=== PATIENT | female | born 1965 | race Caucasian/White ===

== ENCOUNTER → 2016-11-09 | Outpatient (CLI) | payer BC ==
[~2016-11-09] MED LIST: ACET-1256 PO; GLC/500 PO; SYMIN160 INH; VNTHFA/IN INH
--- NOTE | 2016-11-09 12:11 | DIAGNOSTIC IMAGING REPORT ---
CHEST 2 VIEWS ROUTINE HISTORY: J20.9 Acute bronchitis with bronchospasm COMPARISON: Chest 08/02/2014. FINDINGS: The lungs are clear. Cardiac silhouette is normal in size. No pleural effusions. No pneumothorax. Right-sided supraspinatus calcific tendinitis. IMPRESSION: No acute process. Electronically signed by: Lazaro Vale M.D. 11/09/2016 12:10 PM Dictated Date/Time: 11/09/2016 12:07 PM
== END | disposition home or self-care (01) ==
LOC: C.RAD1850 11:24
PROVIDERS: ATTEND Physician Assistant
DX: J20.9 Acute bronchitis, unspecified (principal)

== ENCOUNTER → 2016-11-20 | Outpatient (CLI) | payer BC ==
[~2016-11-20] MED LIST changes: +OPTIRAY 320 IV PRN
[2016-11-20 12:56] LABS: BLOOD UREA NITROGEN 9 mg/dl (7-18); BUN/CREATININE RATIO 15.4 (10-20); CREATININE 0.59 mg/dl (0.60-1.20)
[2016-11-20 13:11] LABS: BASO % 0.1 %; BASO ABS # 0.01 K/uL (0-0.2); COMPLETE YES; EOS % 2.3 %; HEMATOCRIT 38.9 % (37-47); IG% 0.8 %; LYMPH ABS # 3.49 K/uL (1.2-3.4); MEAN CELL VOLUME 85.9 fL (80-100); MEAN CORPUSCULAR HEMOGLOBIN 30.5 pg (25-34); MEAN CORPUSCULAR HGB CONC 35.5 g/dl (32-36); MEAN PLATELET VOLUME 10.5 fL (7.4-10.4); NEUT % 44.8 %; PLATELET COUNT 176 K/uL (130-400); RED BLOOD COUNT 4.53 M/uL (4.2-5.4); WHITE BLOOD COUNT 7.76 K/uL (4.8-10.8)
[2016-11-20 13:44] LABS: ALT/SGPT 75 U/L (12-78); BLOOD UREA NITROGEN 9 mg/dl (7-18); BUN/CREATININE RATIO 16.8 (10-20); CALCIUM 9.1 mg/dl (8.5-10.1); CARBON DIOXIDE 25 mmol/L (21-32); CHLORIDE 104 mmol/L (98-107); CREATININE 0.56 mg/dl (0.60-1.20); GLUCOSE 176 mg/dl (70-99); POTASSIUM 3.7 mmol/L (3.5-5.1); SODIUM 139 mmol/L (136-145)
--- NOTE | 2016-11-20 13:44 | DIAGNOSTIC IMAGING REPORT ---
CT ANGIOGRAM OF THE CHEST CLINICAL HISTORY: Cough. Atypical chest pain. COMPARISON STUDY: Chest radiograph dated 11/09/2016. TECHNIQUE: Following the IV administration of 93 cc of Optiray 320, CT angiogram of the chest was performed from the upper abdomen to the thoracic inlet utilizing the pulmonary embolus protocol. Images are reviewed in the axial, sagittal, and coronal planes. 3-D MIPS images are created and assessed. IV contrast was administered without complication. The examination is degraded by streak artifact from the right arm which could not be elevated above the chest. CT DOSE: 445.15 mGycm FINDINGS: Thyroid: Imaged portions of the thyroid gland are normal in size and attenuation. Thoracic aorta: The thoracic aorta is normal in caliber and demonstrates standard 3-vessel arch anatomy. No dissection is seen. Pulmonary vasculature: The pulmonary trunk is normal in caliber. There are no filling defects identified in main, lobar, or segmental pulmonary branches to suggest pulmonary embolus. Heart: The heart is normal in size and configuration, and without pericardial effusion. Lungs and pleural spaces: The lungs and pleural spaces are clear. The trachea and central airways are patent. Mediastinum: There is no mediastinal lymphadenopathy. Jada: Clear. Axillae: There is no axillary lymphadenopathy. Upper abdomen: The liver is enlarged and steatotic. Partially visualized upper abdominal viscera is otherwise within normal limits. Skeletal structures: No lytic or blastic bony lesions are seen. Mild degenerative change is noted throughout the thoracic spine. IMPRESSION: 1. There is no evidence of pulmonary embolus in the main, lobar, or segmental pulmonary arteries. 2. The lungs are clear. 3. Hepatic steatosis. Electronically signed by: Lefty Isabel M.D. 11/20/2016 1:43 PM Dictated Date/Time: 11/20/2016 1:19 PM
[2016-11-20 13:47] LABS: ALB/GLOB RATIO 1.6 (0.9-2); ALKALINE PHOSPHATASE 77 U/L (45-117); AST/SGOT 32 U/L (15-37)
== END | disposition home or self-care (01) ==
LOC: C.CTS 12:13
PROVIDERS: ATTEND Physician Assistant
DX: G35 Multiple sclerosis (principal); R06.02 Shortness of breath

== ENCOUNTER → 2017-04-26 | Outpatient (CLI) | payer BC ==
[~2017-04-26] MED LIST changes: +GADAVIST IV PRN; -OPTIRAY 320 IV PRN
--- NOTE | 2017-04-26 17:23 | DIAGNOSTIC IMAGING REPORT ---
Brain MRI WITH AND WITHOUT CONTRAST HISTORY: Multiple sclerosis. Follow-up. TECHNIQUE: Multiplanar multisequence MRI of the brain was performed both before and after the intravenous administration of contrast. COMPARISON STUDY: Brain MRI 03/19/2016. FINDINGS: The ventricles and sulci are within normal limits. There is no mass, hematoma, midline shift, acute infarct. Paranasal sinuses and mastoid air cells are clear. The major vascular flow-voids at the skull base are well-maintained. Redemonstration of the multiple scattered foci of T2 hyperintensity seen within the white matter of the supratentorial brain. These are overall similar compared to the prior study and are consistent with the patient's history of multiple sclerosis. Single punctate white matter plaque seen within the right middle cerebellar peduncle. This is also unchanged. No abnormal enhancement to suggest active demyelination. IMPRESSION: No significant change in the scattered white matter plaques consistent with the patient's history of multiple sclerosis. No abnormal enhancement to suggest active demyelination. Electronically signed by: Lazaro Vale M.D. 04/26/2017 5:21 PM Dictated Date/Time: 04/26/2017 5:14 PM
== END | disposition home or self-care (01) ==
LOC: C.MRI 06:13
PROVIDERS: ATTEND Psychiatry & Neurology Neurology
DX: G35 Multiple sclerosis (principal)

== ENCOUNTER → 2018-01-11 | Outpatient (CLI) | payer OTHER ==
[~2018-01-11] MED LIST changes: -GADAVIST IV PRN
--- NOTE | 2018-01-11 13:03 | DIAGNOSTIC IMAGING REPORT ---
ULTRASOUND SOFT TISSUES RIGHT LOWER BACK CLINICAL HISTORY: Palpable lump. COMPARISON STUDY: Pelvic CT dated 12/13/2007. FINDINGS: Real-time, grayscale, and color flow sonography of the soft tissues of the right lower back is performed at the indicated site of interest. No mass lesion or fluid collection is clearly identified. [place] appearing subcutaneous fat is seen in this region. IMPRESSION: No sonographic abnormality is identified at the site of interest. Electronically signed by: Lefty Isabel M.D. 01/11/2018 1:02 PM Dictated Date/Time: 01/11/2018 12:57 PM
== END | disposition home or self-care (01) ==
LOC: C.ULTR 11:57
PROVIDERS: ATTEND Nurse Practitioner Family
DX: R22.9 Localized swelling, mass and lump, unspecified (principal)

== ENCOUNTER → 2018-01-11 | Outpatient (CLI) | payer OTHER ==
--- NOTE | 2018-01-12 13:53 | MAMMOGRAPHY REPORT ---
BILATERAL DIGITAL SCREENING MAMMOGRAM TOMOSYNTHESIS WITH CAD: 01/11/2018 CLINICAL HISTORY: Routine screening. TECHNIQUE: The study was acquired using full field digital technology and interpreted from soft copy. Breast tomosynthesis in addition to standard 2D mammography was performed. Current study was also ev aluated with a Computer Aided Detection (CAD) system. COMPARISON: No prior exams were available for comparison. BREAST COMPOSITION: There are scattered areas of fibroglandular density in both breasts. FINDINGS: No suspicious mass, architectural distortion or cluster of microcalcifications is seen. IMPRESSION: ACR BI-RADS CATEGORY 1: NEGATIVE There is no mammographic evidence of malignancy. A 1 year screening mammogram is recommended.( 019) The patient will receive written notification of the results. Some breast cancers are not detected with mammography. A negative mammographic report should not edward y biopsy if a clinically suggestive mass is present. Emma catherine/ashley:01/11/2018 17:09:30 Information Technology Consultant: RT Reji(Karen)(M), [facility] letter sent: Normal 1/2 BI-RADS Code: ACR BI-RADS Category 1: Negative
== END | disposition home or self-care (01) ==
LOC: C.MAMM 09:39
PROVIDERS: ATTEND Nurse Practitioner Family
DX: Z12.31 Encounter for screening mammogram for malignant neoplasm of breast (principal)

== ENCOUNTER 2020-03-23 20:54 | Inpatient (IN) ==
[2020-03-23] MEDS ORDERED: SODIUM CHLORIDE 0.9% 1000ML 500 ML IV ONE (21:48)
[2020-03-23] MEDS ORDERED: ALBUTEROL HFA 8 GM INHALER INH ONE (21:48)
--- NOTE | 2020-03-23 21:56 | Emergency Department Note ---
Impression & Plan Pneumonia, SOB (shortness of breath), Hyperglycemia, COVID-19 ED Provider Note NAME: KATHY JAMES AGE: 54 SEX: F : 1965 ARRIVES VIA: Walk-In INFORMANT: [Patient] ED PROVIDER(S): [Lefty Vargas MD] CHIEF COMPLAINT: Short of breath HISTORY OF PRESENT ILLNESS: The patient is a 54-year-old female who was diagnosed with COVID-19 around 5 days ago. She had presented with an ear infection. The patient states that since the diagnosis, she has developed a fever and some cough and shortness of breath. She is trying Tylenol but the fever is not controlled. She is feeling more and more short of breath and weak and exhausted. Her skin is tingly. She has had a little bit of diarrhea and some loss of taste. The patient states that she is finishing a Z-Homer for her ear, the ear feels better. She is on her last dose of the Z-Homer. The patient spoke with her doctors office about her ongoing symptoms, she was referred to the ED for further work-up. REVIEW OF SYSTEMS: See HPI for pertinent positives and negatives. A total of ten systems were reviewed and were otherwise negative. PMHx/PSHx: See Below SOCIAL HISTORY: See Below. PHYSICAL EXAM: GENERAL: Patient is in no acute distress. HEENT: No acute trauma, normocephalic atraumatic, mucous membranes moist, no nasal congestion, no scleral icterus. NECK: No stridor, no adenopathy, no meningismus, trachea is midline. LUNGS: Speaks in normal sentences, no respiratory distress, she does have a slightly increased respiratory rate. No accessory muscle use. HEART: Mildly tachycardic and regular, equal pulses in both radial arteries ABDOMEN: Soft, nontender, bowel sounds positive, no hernias, no peritonitis. EXTREMITIES: No cyanosis or edema, full range of motion of all the joints witho ut pain or difficulty, no signs for acute trauma. NEUROLOGIC: Oriented x 3, no acute motor or sensory deficits, no focal weakness. SKIN: No rash, no jaundice, no diaphoresis. DIFFERENTIAL DIAGNOSIS: Sepsis, UTI, pneumonia, metabolic, electrolyte abnormalities, PE, coronavirus, bronchitis, dehydration, cardiac sources, intracerebral event, toxicologic, neurologic, as well as other pathologies. EMERGENCY DEPARTMENT COURSE/PROCEDURES: ECG: Indication was shortness of breath. The ECG shows a sinus tachycardia with a rate of 120. There is some nonspecific ST change diffusely. The QTc is 610. There is no ST elevation, no PVCs. Continuous Cardiac Monitoring: An order was placed for continuous cardiac monitoring. The monitor shows a rate of 113 with sinus tachycardia. Critical Care Note: I have personally spent 48 minutes of critical care time in the direct management of this patient. This includes bedside care, interpretation of diagnostic studies, and testing, discussion with consultants, patient, and family members, and other required patient management activities. This 48 minutes is in excess of all separately billable procedures. MEDICAL DECISION MAKING: There is no leukocytosis. The patient does not have any anemia. There is a nor mal platelet count. No coagulopathy. Glucose was elevated at 322, no kidney failure. Lactic acid level was not elevated making sepsis less likely. No liver enzyme elevation. ECG shows a sinus tachycardia, no acute ischemia. Cardiac enzyme testing x1 is not consistent with acute cardiac injury. Chest film shows some bilateral infiltrates consistent with pneumonia. Urinalysis does not show evidence for infection. Chest CT does show bilateral pneumonia, there was no PE, the thoracic aorta was unremarkable. On exam, the patient was breathing rapidly, she was not technically hypoxic. She was febrile and tachycardic. The patient received IV Decadron, 6 mg. She was given albuterol via MDI. She received IV saline 500 cc. She was given a 10 unit dose of IV insulin. Repeat blood sugar was 196. I do think the patient requires hospitalization. She has findings on chest x- ray, she is tachypneic, tachycardic, febrile. She is hyperglycemic. She is worsening as an outpatient. I do not think she will do well discharged home. I spoke to the patient, I talked with the case coordinator. The on-call hospitalist was consulted. In short, the patient has a bilateral coronavirus pneumonia. Past Med/Surg History Medical History Diabetes type 2, controlled Migraine MS (multiple sclerosis) UTI (urinary tract infection) Surgical History History of section 1995, 1999 History of hysterectomy 2002 Social History Smoking Status: Never smoker Hx Alcohol Use: Yes Alcohol type: beer Hx Substance Use: No Preferred Language: [place] Communication Ability: Effective Bread Panner Required: No Beliefs That Will Affect Care: None marital status: Current Living Situation: Spouse and Other Current Living Situation Comment: lives at home with spouse and son current occupational status: employed current occupation: self-employed Feels Safe at Home: Yes Assistive Devices: None Allergies Allergies Allergy/AdvReac Type Severity Reaction Status Date / Time cefuroxime Allergy Severe Hives Verified 03/23/20 23:03 adhesive Allergy Intermediate PAPER Verified 03/23/20 23:03 TAPE-ITCHY RASH aspirin Allergy Intermediate HIVES Verified 03/23/20 23:03 dimethyl fumarate Allergy Intermediate Hives Verified 03/23/20 23:03 [From Tecfidera] fingolimod [From Gilenya] Allergy Intermediate Hives Verified 03/23/20 23:03 Fish Containing Products Allergy Intermediate Hives Verified 03/23/20 23:03 fish derived Allergy Intermediate Hives Verified 03/23/20 23:03 Penicillins Allergy Unknown HAD ANCEF Verified 03/23/20 23:03 BEFORE Home Meds Home Medications Medication Instructions Recorded Confirmed azithromycin 250 mg PO DIRECTED 03/23/20 03/23/20 metformin 1,000 mg PO BID 03/23/20 03/23/20 Previous Rx's Medication Instructions Recorded natalizumab 300 mg/15 mL 300 mg IV Q28D 28 Days #15 ml 05/23/19 intravenous solution amitriptyline 25 mg tablet 25 mg PO HS #30 tab 03/05/20 Results & Data (ED) Vital Signs Vital Signs - 24 hr 03/23/20 21:00 03/23/20 21:35 03/23/20 22:00 Temperature 38.6 C H Temperature Source Oral Pulse Rate 130 H Pulse Rate from SpO2 Sensor Respiratory Rate 22 Respiratory Effort / Characteristics Blood Pressure 132/73 137/78 Blood Pressure Mean 92 89 Blood Pressure Position Sitting Pulse Oximetry 96 98 Oxygen Delivery Method Room Air Room Air Sepsis Recent Fever Within 48 Hours Yes Sepsis New/Unexplained Change in Mental Status N/A Sepsis Action Taken by Nursing No Action Required 03/23/20 22:44 03/23/20 22:51 03/24/20 00:00 Temperature Temperature Source Pulse Rate 119 H 112 H Pulse Rate from SpO2 Sensor 119 H 112 H Respiratory Rate 20 20 33 H Respiratory Effort / Characteristics Non-Labored Spontaneous Blood Pressure 142/62 H 138/73 Blood Pressure Mean 87 97 Blood Pressure Position Pulse Oximetry 95 95 97 Oxygen Delivery Method Room Air Sepsis Recent Fever Within 48 Hours Sepsis New/Unexplained Change in Mental Status Sepsis Action Taken by Nursing 03/24/20 00:01 03/24/20 00:31 03/24/20 00:49 Temperature 37.5 C Temperature Source Oral Pulse Rate 113 H 116 H Pulse Rate from SpO2 Sensor 113 H Respiratory Rate 32 H 22 Respiratory Effort / Characteristics Blood Pressure Blood Pressure Mean Blood Pressure Position Pulse Oximetry 97 96 Oxygen Delivery Method Sepsis Recent Fever Within 48 Hours Sepsis New/Unexplained Change in Mental Status Sepsis Action Taken by [facility]ent[facility] Medications Current Medication List: was personally reviewed by me Laboratory Data Attestation: I reviewed the patient's lab results. Result diagrams: 03/23/20 22:25 03/23/20 22:25 Lab Results 03/23/20 03/23/20 03/23/20 Range/Units 22:25 22:25 22:25 WBC 4.72 L (4.8-10.8) K/uL RBC 4.85 (4.2-5.4) M/uL Hgb 14.7 (12.0-16.0) g/dL Hct 41.8 (37-47) % MCV 86.2 (80-100) fL MCH 30.3 (25-34) pg MCHC 35.2 (32-36) g/dL RDW Std Deviation 41.4 (36.4-46.3) fL RDW Coeff of Maxx 13.1 (11.5-14.5) % Plt Count 191 (130-400) K/uL MPV 10.8 H (7.4-10.4) fL Immature Gran % (Auto) 0.2 % Neut % (Auto) 52.1 % Lymph % (Auto) 36.7 % [place] % (Auto) 10.4 % Eos % (Auto) 0.6 % Baso % (Auto) 0.0 % Neut # (Auto) 2.46 (1.4-6.5) K/uL Lymph # (Auto) 1.73 (1.2-3.4) K/uL [place] # (Auto) 0.49 (0.11-0.59) K/uL Eos # (Auto) 0.03 (0-0.5) K/uL Baso # (Auto) 0.00 (0-0.2) K/uL Immature Gran # (Auto) 0.01 (0.00-0.02) K/uL PT 9.9 (9.0-12.0) Seconds INR 0.9 (0.9-1.1) APTT 26.5 (21.0-31.0) Seconds PTT Ratio 0.9 Sodium 136 (136-145) mmol/L Potassium 3.8 (3.5-5.1) mmol/L Chloride 103 (98-107) mmol/L Carbon Dioxide 26 (21-32) mmol/L Anion Gap 7.0 (3-11) BUN 13 (7-18) mg/dl Creatinine 0.65 (0.6-1.2) mg/dl Est Cr Clr Drug Dosing 107.9 ml/min Est GFR ( Amer) 118.3 Est GFR (Non-Af Amer) 102.1 BUN/Creatinine Ratio 19.4 (10-20) Glucose 322 H* (70-99) mg/dl POC Glucose (70-99) mg/dl Lactate (0.4-2.0) mmol/L Calcium 8.3 L (8.5-10.1) mg/dl Magnesium 1.9 (1.8-2.4) mg/dl Total Bilirubin 0.6 (0.2-1) mg/dl AST 32 (15-37) U/L ALT 49 (12-78) U/L Alkaline Phosphatase 97 (45-117) U/L Troponin I < 0.015 (0-0.045) ng/ml Total Protein 7.0 (6.4-8.2) gm/dl Albumin 3.9 (3.4-5.0) gm/dl Globulin 3.1 (2.5-4.0) gm/dl Albumin/Globulin Ratio 1.3 (0.9-2) Beta-Hydroxybutyric Acd 2.11 (0.2-2.81) mg/dl Procalcitonin (0-0.5) ng/ml Specimen Hemolysis Urine Color Urine Appearance (Clear) Urine pH (4.5-7.5) Ur Specific Orange (1.000-1.030) Urine Protein (Negative) Urine Glucose (UA) (Negative) Urine Ketones (Negative) Urine Blood (Negative) Urine Nitrite (Negative) Urine Bilirubin (Negative) Urine Urobilinogen (Negative) Ur Leukocyte Esterase (Negative) Urine WBC (Auto) (0-5) /hpf Urine RBC (Auto) (0-4) /hpf U Hyaline Cast (Auto) (0-5) /lpf U Epithel Cells (Auto) (0-5) /lpf Urine Bacteria (Auto) (Negative) 03/23/20 03/23/20 03/23/20 Range/Units 22:30 22:30 22:40 WBC (4.8-10.8) K/uL RBC (4.2-5.4) M/uL Hgb (12.0-16.0) g/dL Hct (37-47) % MCV (80-100) fL MCH (25-34) pg MCHC (32-36) g/dL RDW Std Deviation (36.4-46.3) fL RDW Coeff of Maxx (11.5-14.5) % Plt Count (130-400) K/uL MPV (7.4-10.4) fL Immature Gran % (Auto) % Neut % (Auto) % Lymph % (Auto) % [place] % (Auto) % Eos % (Auto) % Baso % (Auto) % Neut # (Auto) (1.4-6.5) K/uL Lymph # (Auto) (1.2-3.4) K/uL [place] # (Auto) (0.11-0.59) K/uL Eos # (Auto) (0-0.5) K/uL Baso # (Auto) (0-0.2) K/uL Immature Gran # (Auto) (0.00-0.02) K/uL PT (9.0-12.0) Seconds INR (0.9-1.1) APTT (21.0-31.0) Seconds PTT Ratio Sodium (136-145) mmol/L Potassium (3.5-5.1) mmol/L Chloride (98-107) mmol/L Carbon Dioxide (21-32) mmol/L Anion Gap (3-11) BUN (7-18) mg/dl Creatinine (0.6-1.2) mg/dl Est Cr Clr Drug Dosing ml/min Est GFR ( Amer) Est GFR (Non-Af Amer) BUN/Creatinine Ratio (10-20) Glucose (70-99) mg/dl POC Glucose (70-99) mg/dl Lactate 1.7 (0.4-2.0) mmol/L Calcium (8.5-10.1) mg/dl Magnesium (1.8-2.4) mg/dl Total Bilirubin (0.2-1) mg/dl AST (15-37) U/L ALT (12-78) U/L Alkaline Phosphatase (45-117) U/L Troponin I (0-0.045) ng/ml Total Protein (6.4-8.2) gm/dl Albumin (3.4-5.0) gm/dl Globulin (2.5-4.0) gm/dl Albumin/Globulin Ratio (0.9-2) Beta-Hydroxybutyric Acd (0.2-2.81) mg/dl Procalcitonin 0.09 (0-0.5) ng/ml Specimen Hemolysis Urine Color Yellow Urine Appearance Cloudy A (Clear) Urine pH 5.0 (4.5-7.5) Ur Specific Orange 1.041 H (1.000-1.030) Urine Protein Trace H (Negative) Urine Glucose (UA) 3+ H (Negative) Urine Ketones 1+ H (Negative) Urine Blood Negative (Negative) Urine Nitrite Negative (Negative) Urine Bilirubin Negative (Negative) Urine Urobilinogen Negative (Negative) Ur Leukocyte Esterase Negative (Negative) Urine WBC (Auto) 5-10 H (0-5) /hpf Urine RBC (Auto) 0-4 (0-4) /hpf U Hyaline Cast (Auto) 1-5 (0-5) /lpf U Epithel Cells (Auto) 20-30 H (0-5) /lpf Urine Bacteria (Auto) Negative (Negative) 03/24/20 Range/Units 00:05 WBC (4.8-10.8) K/uL RBC (4.2-5.4) M/uL Hgb (12.0-16.0) g/dL Hct (37-47) % MCV (80-100) fL MCH (25-34) pg MCHC (32-36) g/dL RDW Std Deviation (36.4-46.3) fL RDW Coeff of Maxx (11.5-14.5) % Plt Count (130-400) K/uL MPV (7.4-10.4) fL Immature Gran % (Auto) % Neut % (Auto) % Lymph % (Auto) % [place] % (Auto) % Eos % (Auto) % Baso % (Auto) % Neut # (Auto) (1.4-6.5) K/uL Lymph # (Auto) (1.2-3.4) K/uL [place] # (Auto) (0.11-0.59) K/uL Eos # (Auto) (0-0.5) K/uL Baso # (Auto) (0-0.2) K/uL Immature Gran # (Auto) (0.00-0.02) K/uL PT (9.0-12.0) Seconds INR (0.9-1.1) APTT (21.0-31.0) Seconds PTT Ratio Sodium (136-145) mmol/L Potassium (3.5-5.1) mmol/L Chloride (98-107) mmol/L Carbon Dioxide (21-32) mmol/L Anion Gap (3-11) BUN (7-18) mg/dl Creatinine (0.6-1.2) mg/dl Est Cr Clr Drug Dosing ml/min Est GFR ( Amer) Est GFR (Non-Af Amer) BUN/Creatinine Ratio (10-20) Glucose (70-99) mg/dl POC Glucose 196 H (70-99) mg/dl Lactate (0.4-2.0) mmol/L Calcium (8.5-10.1) mg/dl Magnesium (1.8-2.4) mg/dl Total Bilirubin (0.2-1) mg/dl AST (15-37) U/L ALT (12-78) U/L Alkaline Phosphatase (45-117) U/L Troponin I (0-0.045) ng/ml Total Protein (6.4-8.2) gm/dl Albumin (3.4-5.0) gm/dl Globulin (2.5-4.0) gm/dl Albumin/Globulin Ratio (0.9-2) Beta-Hydroxybutyric Acd (0.2-2.81) mg/dl Procalcitonin (0-0.5) ng/ml Specimen Hemolysis Urine Color Urine Appearance (Clear) Urine pH (4.5-7.5) Ur Specific Orange (1.000-1.030) Urine Protein (Negative) Urine Glucose (UA) (Negative) Urine Ketones (Negative) Urine Blood (Negative) Urine Nitrite (Negative) Urine Bilirubin (Negative) Urine Urobilinogen (Negative) Ur Leukocyte Esterase (Negative) Urine WBC (Auto) (0-5) /hpf Urine RBC (Auto) (0-4) /hpf U Hyaline Cast (Auto) (0-5) /lpf U Epithel Cells (Auto) (0-5) /lpf Urine Bacteria (Auto) (Negative) Administered Medications Discontinued Medications Albuterol (Albuterol Hfa 8 Gm Inhaler) 3 puffs INH NOW ONE Stop: 03/23/20 21:49 Last Admin: 03/23/20 22:30 Dose: 3 puffs Documented by: [id number] Dexamethasone (Dexamethasone Sod Inj 10 Mg/Ml Vial) 6 mg IV NOW ONE Stop: 03/24/20 00:32 Last Admin: 03/24/20 00:46 Dose: 6 mg Documented by: [id number] Sodium Chloride (Nss 1000ml) 500 mls @ 999 mls/hr IV .Q31M ONE Stop: 03/23/20 22:18 Last Infusion: 03/23/20 23:05 Dose: 0 mls/hr Documented by: [id number] Admin: 03/23/20 22:30 Dose: 999 mls/hr Documented by: [id number] Insulin Human Regular (Novolin-R Insulin Per Unit Charge) 10 units IV NOW STA Stop: 03/23/20 23:33 Last Admin: 03/23/20 23:36 Dose: 10 units Documented by: [id number] Cosigned by: [id number] Ioversol (Optiray 320 125ml) 119 ml IV ONCE ONE Stop: 03/24/20 00:00 Last Admin: 03/23/20 23:59 Dose: 119 ml Documented by: [id number] Imaging Data Attestation: I personally reviewed and interpreted this imaging study as follows: My Impression: Chest film: There are patchy bilateral infiltrates consistent with a bilateral pneumonia. There is no pneumothorax. Radiologist's Impression: Chest CT for PE: The thoracic aorta appears normal. There is no PE. There are patchy bilateral groundglass densities consistent with pneumonia. Discharge Plan Visit Data Chief Complaint: Illness Stated Complaint: COVID+ - DOCTOR REFERRED ED Provider: Lefty Vargas Discharge Problem: Pneumonia, SOB (shortness of breath), Hyperglycemia, COVID-19 Patient Disposition: Admitted As Inpatient Condition: Fair Forms Stand Alone Forms: [facility] [employer] Prescriptions Prescriptions: No Action Tysabri 300 mg/15 mL solution 300 mg IV Q28D 28 Days Qty: 15 RF: 11 amitriptyline 25 mg tablet 25 mg PO HS Qty: 30 RF: 5 azithromycin 250 mg tablet 250 mg PO DIRECTED RF: 0 metformin 1,000 mg tablet 1,000 mg PO BID RF: 0 Referrals Referrals: Bruce Wagner DO [Primary Care Provider] - Discharge Problem: Pneumonia Qualifiers: Pneumonia type: due to unspecified organism Laterality: bilateral Lung location: unspecified part of lung Qualified Code(s): J18.9 - Pneumonia, unspecified organism
[2020-03-23 22:53] LABS: Eosinophils # (auto) 0.03 K/uL (0-0.5); Eosinophils % (auto) 0.6 %; Hematocrit (blood only) 41.8 % (37-47); Hemoglobin 14.7 g/dL (12.0-16.0); Immature Granulocytes # (auto) 0.01 K/uL (0.00-0.02); Immature Granulocytes % (auto) 0.2 %; Lymphocytes # (auto) 1.73 K/uL (1.2-3.4); Lymphocytes % (auto) 36.7 %; Mean Corpuscular Hemoglobin 30.3 pg (25-34); Mean Corpuscular Hgb Conc 35.2 g/dL (32-36); Mean Corpuscular Volume 86.2 fL (80-100); Mean Platelet Volume 10.8 fL (7.4-10.4); Monocytes # (auto) 0.49 K/uL (0.11-0.59); Monocytes % (auto) 10.4 %; Neutrophils # (auto) 2.46 K/uL (1.4-6.5); Neutrophils % (auto) 52.1 %; Platelet Count 191 K/uL (130-400); RDW Coefficient of Variation 13.1 % (11.5-14.5); RDW Standard Deviation 41.4 fL (36.4-46.3); Red Blood Count 4.85 M/uL (4.2-5.4); White Blood Count 4.72 K/uL (4.8-10.8)
[2020-03-23 22:56] LABS: Appearance Urine Cloudy (Clear); Bacteria Urine Automated Negative (Negative); Bilirubin Urine Negative (Negative); Blood Urine Negative (Negative); Color Urine Yellow; Epithelial Cell Urine Auto 20-30 /lpf (0-5); Glucose Urine UA 3+ (Negative); Ketones Urine 1+ (Negative); Leukocyte Esterase Urine Negative (Negative); Nitrite Urine Negative (Negative); Protein Urine Trace (Negative); RBC Urine Automated 0-4 /hpf (0-4); Specific Gravity Urine 1.041 (1.000-1.030); Urobilinogen Urine Negative (Negative)
[2020-03-23 23:04] LABS: INR 0.9 (0.9-1.1); Partial Thromboplastin Ratio 0.9; Partial Thromboplastin Time 26.5 Seconds (21.0-31.0); Prothrombin Time 9.9 Seconds (9.0-12.0)
[2020-03-23 23:28] LABS: Globulin 3.1 gm/dl (2.5-4.0)
[2020-03-23 23:31] LABS: Alanine Aminotransferase 49 U/L (12-78); Albumin Globulin Ratio 1.3 (0.9-2); Albumin Level 3.9 gm/dl (3.4-5.0); Alkaline Phosphatase 97 U/L (45-117); Aspartate Aminotransferase 32 U/L (15-37); BUN Creatinine Ratio 19.4 (10-20); Bilirubin,Total 0.6 mg/dl (0.2-1); Blood Urea Nitrogen 13 mg/dl (7-18); Calcium 8.3 mg/dl (8.5-10.1); Carbon Dioxide 26 mmol/L (21-32); Chloride 103 mmol/L (98-107); Creatinine Clr Calc Pharmacy 107.9 ml/min; Est GFR (African American) 118.3; Est GFR (Non-African American) 102.1; Glucose 322 mg/dl (70-99); Magnesium 1.9 mg/dl (1.8-2.4); Potassium 3.8 mmol/L (3.5-5.1); Sodium 136 mmol/L (136-145); Troponin I < 0.015 ng/ml (0-0.045)
[2020-03-23] MEDS ORDERED: NovoLIN-R INSULIN PER UNIT CHARGE IV STA (23:32)
[2020-03-23] MEDS ORDERED: OPTIRAY 320 125ml IV ONE (23:59)
[2020-03-24 00:04] LABS: Beta-Hydroxybutyrate 2.11 mg/dl (0.2-2.81)
[2020-03-24] MEDS ORDERED: DEXAMETHASONE SOD INJ 10 MG/ML VIAL IV ONE (00:31)
--- NOTE | 2020-03-24 01:42 | History & Physical Report ---
Date of Service March 24, 2020 Assessment & Plan (1) COVID-19: Patient diagnosed on 03/18 with Covid-19, worsening symptoms over the last day. Patient with cough, SOB and fever. Presently with adequate oxygenation >94% on room air. -Admit to medical with telemetry - maintain airborne and contact precautions -Check inflammatory markers - ESR/CRP/Ddimer/Ferritin -Dexamethasone 6mg IV daily -Convalescent plasma - patient provided informed consent -?Remdesivir therapy - will consult Pulmonary -Lovenox 40 BID -Zinc -Pepcid Present on Admission?: Yes (2) Diabetes type 2, controlled: Hyperglycemic on arrival -Hold Metformin -Lantus 5u BID, ISS Present on Admission?: Yes (3) MS (multiple sclerosis): Noted. Patient follows with Neurology. Receives infusion of natalizumab q monthly, is due next week F/E/N - Heplock. Electroltyes wnl. CC diet as tolerated Ppx - Lovenox 40u BID Code - Full Dispo - Admit to med/tele History of Present Illness Chief Complaint: cough, SOB, fever Primary Care Provider: DO Yamila Carlos is a 54yo C female with history of DM on Metformin, MS on natalizumab infusion q 28 days. Patient was seen by her PCP on 03/18 with complaint of ear pain. She was started on Azithromycin and tested for Covid-19. Patient's Covid test came back positive. She believes she contracted the illness from her son's roommates who have recently tested positive. Patient has been feeling fairly well at home until yesterday 03/23 when she developed persistent fever, cough, SOB. She also had loss of taste and some diarrhea. No CP/palpitations/abdominal pain. ER Course: Albuterol HFA, Dexamethasone, Insulin 10u IV, NSS x 500mL Allergies Allergy/AdvReac Type Severity Reaction Status Date / Time cefuroxime Allergy Severe Hives Verified 03/23/20 23:03 adhesive Allergy Intermediate PAPER Verified 03/23/20 23:03 TAPE-ITCHY RASH aspirin Allergy Intermediate HIVES Verified 03/23/20 23:03 dimethyl fumarate Allergy Intermediate Hives Verified 03/23/20 23:03 [From Tecfidera] fingolimod [From Gilenya] Allergy Intermediate Hives Verified 03/23/20 23:03 Fish Containing Products Allergy Intermediate Hives Verified 03/23/20 23:03 fish derived Allergy Intermediate Hives Verified 03/23/20 23:03 Penicillins Allergy Unknown HAD ANCEF Verified 03/23/20 23:03 BEFORE Home Medications Home Medications Medication Instructions Recorded Confirmed Type natalizumab 300 mg/15 mL 300 mg IV Q28D 28 Days #15 ml 05/23/19 03/23/20 Rx intravenous solution amitriptyline 25 mg tablet 25 mg PO HS #30 tab 03/05/20 03/23/20 Rx azithromycin 250 mg PO DIRECTED 03/23/20 03/23/20 History metformin 1,000 mg PO BID 03/23/20 03/23/20 History Past Med/Surg History Medical History Diabetes type 2, controlled Migraine MS (multiple sclerosis) UTI (urinary tract infection) Surgical History History of section 1999 History of hysterectomy 2002 Social History Smoking Status: Never smoker Hx Alcohol Use: No Hx Substance Use: No Preferred Language: Tristanian Communication Ability: Effective Industrial Psychologist Required: No Beliefs That Will Affect Care: None marital status: Current Living Situation: Spouse Current Living Situation Comment: lives at home with spouse and son current occupational status: employed current occupation: self-employed Other Information That Helps Us Care for You: No Feels Safe at Home: Yes Safety Concerns: Feels Safe At This Time Assistive Devices: Glasses Review of Systems Review of Systems: All systems reviewed & are unremarkable except as noted in HPI & below Physical Exam Physical Exam: General: patient resting comfortably, NAD, non-toxic in appearance, AA&O x 4 Skin: warm, dry, intact, no rashes or lesions HEENT: NC/AT, PERRL, EOMI, anicteric sclera, conjunctiva without injection, ex ternal ear normal to inspection and nontender, nares patent, moist mucus membranes, dentition intact, no oropharyngeal lesions, neck supple, trachea midline, no LAD, no thyromegaly, no JVD Heart: +S1/S2, regular Lungs: equal air entry bilaterally, no rales/rhonchi/wheezes, tachypneic Abd: +BS, soft, NT/ND, no masses/organomegaly/ascites Ext: warm, 2+ pulses in UE/LE bilaterally, no clubbing/cyanosis or edema Neuro: nonfocal, patient AA&O x 4, speech intact, no facial droop, moving all extremities on command with equal strength 5/5 Results & Data Results & Data ([facility]) Vital Signs (Past 12 Hours) Vital Signs Temp Pulse Resp BP Pulse Ox 03/24/20 00:49 37.5 C 03/24/20 00:31 116 H 22 96 03/24/20 00:01 113 H 32 H 97 03/24/20 00:00 112 H 33 H 138/73 97 03/23/20 22:51 20 95 03/23/20 22:44 119 H 20 142/62 H 95 03/23/20 22:00 98 03/23/20 21:35 137/78 03/23/20 21:00 38.6 C H 130 H 22 132/73 96 Laboratory Results Lab Results 03/23/20 03/23/20 03/23/20 Range/Units 22:25 22:25 22:25 WBC 4.72 L (4.8-10.8) K/uL RBC 4.85 (4.2-5.4) M/uL Hgb 14.7 (12.0-16.0) g/dL Hct 41.8 (37-47) % MCV 86.2 (80-100) fL MCH 30.3 (25-34) pg MCHC 35.2 (32-36) g/dL RDW Std Deviation 41.4 (36.4-46.3) fL RDW Coeff of Maxx 13.1 (11.5-14.5) % Plt Count 191 (130-400) K/uL MPV 10.8 H (7.4-10.4) fL Immature Gran % (Auto) 0.2 % Neut % (Auto) 52.1 % Lymph % (Auto) 36.7 % [place] % (Auto) 10.4 % Eos % (Auto) 0.6 % Baso % (Auto) 0.0 % Neut # (Auto) 2.46 (1.4-6.5) K/uL Lymph # (Auto) 1.73 (1.2-3.4) K/uL [place] # (Auto) 0.49 (0.11-0.59) K/uL Eos # (Auto) 0.03 (0-0.5) K/uL Baso # (Auto) 0.00 (0-0.2) K/uL Immature Gran # (Auto) 0.01 (0.00-0.02) K/uL PT 9.9 (9.0-12.0) Seconds INR 0.9 (0.9-1.1) APTT 26.5 (21.0-31.0) Seconds PTT Ratio 0.9 Sodium 136 (136-145) mmol/L Potassium 3.8 (3.5-5.1) mmol/L Chloride 103 (98-107) mmol/L Carbon Dioxide 26 (21-32) mmol/L Anion Gap 7.0 (3-11) BUN 13 (7-18) mg/dl Creatinine 0.65 (0.6-1.2) mg/dl Est Cr Clr Drug Dosing 107.9 ml/min Est GFR ( Amer) 118.3 Est GFR (Non-Af Amer) 102.1 BUN/Creatinine Ratio 19.4 (10-20) Glucose 322 H* (70-99) mg/dl POC Glucose (70-99) mg/dl Lactate (0.4-2.0) mmol/L Calcium 8.3 L (8.5-10.1) mg/dl Magnesium 1.9 (1.8-2.4) mg/dl Total Bilirubin 0.6 (0.2-1) mg/dl AST 32 (15-37) U/L ALT 49 (12-78) U/L Alkaline Phosphatase 97 (45-117) U/L Troponin I < 0.015 (0-0.045) ng/ml Total Protein 7.0 (6.4-8.2) gm/dl Albumin 3.9 (3.4-5.0) gm/dl Globulin 3.1 (2.5-4.0) gm/dl Albumin/Globulin Ratio 1.3 (0.9-2) Beta-Hydroxybutyric Acd 2.11 (0.2-2.81) mg/dl Procalcitonin (0-0.5) ng/ml Specimen Hemolysis Urine Color Urine Appearance (Clear) Urine pH (4.5-7.5) Ur Specific [place] (1.000-1.030) Urine Protein (Negative) Urine Glucose (UA) (Negative) Urine Ketones (Negative) Urine Blood (Negative) Urine Nitrite (Negative) Urine Bilirubin (Negative) Urine Urobilinogen (Negative) Ur Leukocyte Esterase (Negative) Urine WBC (Auto) (0-5) /hpf Urine RBC (Auto) (0-4) /hpf U Hyaline Cast (Auto) (0-5) /lpf U Epithel Cells (Auto) (0-5) /lpf Urine Bacteria (Auto) (Negative) 03/23/20 03/23/20 03/23/20 Range/Units 22:30 22:30 22:40 WBC (4.8-10.8) K/uL RBC (4.2-5.4) M/uL Hgb (12.0-16.0) g/dL Hct (37-47) % MCV (80-100) fL MCH (25-34) pg MCHC (32-36) g/dL RDW Std Deviation (36.4-46.3) fL RDW Coeff of Maxx (11.5-14.5) % Plt Count (130-400) K/uL MPV (7.4-10.4) fL Immature Gran % (Auto) % Neut % (Auto) % Lymph % (Auto) % [place] % (Auto) % Eos % (Auto) % Baso % (Auto) % Neut # (Auto) (1.4-6.5) K/uL Lymph # (Auto) (1.2-3.4) K/uL [place] # (Auto) (0.11-0.59) K/uL Eos # (Auto) (0-0.5) K/uL Baso # (Auto) (0-0.2) K/uL Immature Gran # (Auto) (0.00-0.02) K/uL PT (9.0-12.0) Seconds INR (0.9-1.1) APTT (21.0-31.0) Seconds PTT Ratio Sodium (136-145) mmol/L Potassium (3.5-5.1) mmol/L Chloride (98-107) mmol/L Carbon Dioxide (21-32) mmol/L Anion Gap (3-11) BUN (7-18) mg/dl Creatinine (0.6-1.2) mg/dl Est Cr Clr Drug Dosing ml/min Est GFR ( Amer) Est GFR (Non-Af Amer) BUN/Creatinine Ratio (10-20) Glucose (70-99) mg/dl POC Glucose (70-99) mg/dl Lactate 1.7 (0.4-2.0) mmol/L Calcium (8.5-10.1) mg/dl Magnesium (1.8-2.4) mg/dl Total Bilirubin (0.2-1) mg/dl AST (15-37) U/L ALT (12-78) U/L Alkaline Phosphatase (45-117) U/L Troponin I (0-0.045) ng/ml Total Protein (6.4-8.2) gm/dl Albumin (3.4-5.0) gm/dl Globulin (2.5-4.0) gm/dl Albumin/Globulin Ratio (0.9-2) Beta-Hydroxybutyric Acd (0.2-2.81) mg/dl Procalcitonin 0.09 (0-0.5) ng/ml Specimen Hemolysis Urine Color Yellow Urine Appearance Cloudy A (Clear) Urine pH 5.0 (4.5-7.5) Ur Specific [place] 1.041 H (1.000-1.030) Urine Protein Trace H (Negative) Urine Glucose (UA) 3+ H (Negative) Urine Ketones 1+ H (Negative) Urine Blood Negative (Negative) Urine Nitrite Negative (Negative) Urine Bilirubin Negative (Negative) Urine Urobilinogen Negative (Negative) Ur Leukocyte Esterase Negative (Negative) Urine WBC (Auto) 5-10 H (0-5) /hpf Urine RBC (Auto) 0-4 (0-4) /hpf U Hyaline Cast (Auto) 1-5 (0-5) /lpf U Epithel Cells (Auto) 20-30 H (0-5) /lpf Urine Bacteria (Auto) Negative (Negative) 03/24/20 Range/Units 00:05 WBC (4.8-10.8) K/uL RBC (4.2-5.4) M/uL Hgb (12.0-16.0) g/dL Hct (37-47) % MCV (80-100) fL MCH (25-34) pg MCHC (32-36) g/dL RDW Std Deviation (36.4-46.3) fL RDW Coeff of Maxx (11.5-14.5) % Plt Count (130-400) K/uL MPV (7.4-10.4) fL Immature Gran % (Auto) % Neut % (Auto) % Lymph % (Auto) % [place] % (Auto) % Eos % (Auto) % Baso % (Auto) % Neut # (Auto) (1.4-6.5) K/uL Lymph # (Auto) (1.2-3.4) K/uL [place] # (Auto) (0.11-0.59) K/uL Eos # (Auto) (0-0.5) K/uL Baso # (Auto) (0-0.2) K/uL Immature Gran # (Auto) (0.00-0.02) K/uL PT (9.0-12.0) Seconds INR (0.9-1.1) APTT (21.0-31.0) Seconds PTT Ratio Sodium (136-145) mmol/L Potassium (3.5-5.1) mmol/L Chloride (98-107) mmol/L Carbon Dioxide (21-32) mmol/L Anion Gap (3-11) BUN (7-18) mg/dl Creatinine (0.6-1.2) mg/dl Est Cr Clr Drug Dosing ml/min Est GFR ( Amer) Est GFR (Non-Af Amer) BUN/Creatinine Ratio (10-20) Glucose (70-99) mg/dl POC Glucose 196 H (70-99) mg/dl Lactate (0.4-2.0) mmol/L Calcium (8.5-10.1) mg/dl Magnesium (1.8-2.4) mg/dl Total Bilirubin (0.2-1) mg/dl AST (15-37) U/L ALT (12-78) U/L Alkaline Phosphatase (45-117) U/L Troponin I (0-0.045) ng/ml Total Protein (6.4-8.2) gm/dl Albumin (3.4-5.0) gm/dl Globulin (2.5-4.0) gm/dl Albumin/Globulin Ratio (0.9-2) Beta-Hydroxybutyric Acd (0.2-2.81) mg/dl Procalcitonin (0-0.5) ng/ml Specimen Hemolysis Urine Color Urine Appearance (Clear) Urine pH (4.5-7.5) Ur Specific [place] (1.000-1.030) Urine Protein (Negative) Urine Glucose (UA) (Negative) Urine Ketones (Negative) Urine Blood (Negative) Urine Nitrite (Negative) Urine Bilirubin (Negative) Urine Urobilinogen (Negative) Ur Leukocyte Esterase (Negative) Urine WBC (Auto) (0-5) /hpf Urine RBC (Auto) (0-4) /hpf U Hyaline Cast (Auto) (0-5) /lpf U Epithel Cells (Auto) (0-5) /lpf Urine Bacteria (Auto) (Negative) Diagnostic Findings CTA Chest - Heart is normal. Thoracic aorta appears normal. There is no pulmonary embolism. Patchy bilateral areas of graoundglass density and consolidation suggesting multifocal PNA. No PE. Multifocal PNA possiblyl viral in origin Code Status & VTE Plan Code Status FULL VTE Prophylaxis Plan VTE Prophylaxis will be ordered: Yes PG Care Time/CCT Total # of Minutes Spent Total Time Spent with Patient: Total time spent is greater than 50% in coordination of care (as documented) at patient's floor/unit and/or counseling patient: Coding Level of Care Code 41469 Initial Inpt Care Lvl 2 Diagnoses COVID-19 U07.1 Diabetes type 2, controlled E11.9 Diabetes mellitus truck terminal manager insulin use: without truck terminal manager use Diabetes mellitus complication status: without complication MS (multiple sclerosis) G35 (1) Diabetes type 2, controlled Diabetes mellitus detention insulin use: without detention use Diabetes mellitus complication status: without complication Qualified Code(s): E11.9 - Type 2 diabetes mellitus without complications
[2020-03-24] MEDS ORDERED: DEXTROSE 50% 50 ML SYRINGE IV PRN (02:47)
[2020-03-24] MEDS ORDERED: ACETAMINOPHEN 325 MG TAB PO PRN (02:47)
[2020-03-24] MEDS ORDERED: GLUCOSE 10 TABS/TUBE PO PRN (02:47)
[2020-03-24] MEDS ORDERED: GLUCAGON FOR INJ 1 MG VIAL SQ PRN (02:47)
[2020-03-24] MEDS ORDERED: ONDANSETRON INJ 2 MG/ML 2 ML VIAL IV PRN (02:47)
[2020-03-24] MEDS ORDERED: CARBOHYDRATES FOR HYPOGLYCEMIA PO PRN (02:47)
[2020-03-24] MEDS ORDERED: GLUCOSE 40% GEL 15 GM TUBE PO PRN (02:47)
[2020-03-24 06:21] LABS: D Dimer 610 ug/L FEU (0-500)
[2020-03-24 06:24] LABS: C Reactive Protein 3.11 mg/dl (0-0.29); Ferritin 406.6 ng/ml (8-388)
[2020-03-24] MEDS ORDERED: ZINC SULFATE 220 MG CAPSULE PO SCH ×2 (08:00→09:00)
[2020-03-24] MEDS ORDERED: INFLUENZA ADMINISTRATION CHARGE ONE (08:00)
[2020-03-24] MEDS ORDERED: INFLUENZA VIRUS QUAD VACCINE 0.5 ML SYR IM ONE (08:00)
[2020-03-24] MEDS ORDERED: DEXAMETHASONE SOD PHOSPHATE 6 MG in SYRINGE 0 ML IV SCH (08:00)
[2020-03-24] MEDS ORDERED: FAMOTIDINE 20 MG in SYRINGE 3 ML IV SCH ×2 (08:00→09:00)
[2020-03-24] MEDS: ENOXAPARIN INJ 40 MG/0.4 ML SYR SQ SCH (08:01)
[2020-03-24] MEDS ORDERED: DEXAMETHASONE SOD INJ 4 MG/ML VIAL IV SCH (09:00)
[2020-03-24] MEDS: INSULIN GLARGINE SOLOSTAR 100 UNITS/ML 3 ML PEN SC SCH ×2 (09:09→21:03)
[2020-03-24] MEDS: INSULIN ASPART 100 UNITS/ML 3 ML PEN SC SCH ×4 (09:36→21:03)
--- NOTE | 2020-03-24 09:57 | CT Scan Report ---
CHEST CTA for PULMONARY ARTERIES CT DOSE: 591.20 mGycm HISTORY: Positive Covid. Shortness of breath. TECHNIQUE: Multiaxial CT images of the chest were performed following the intravenous administration of contrast to evaluate the pulmonary arteries. Maximal intensity projection images were also obtaine d. A dose lowering technique was utilized adhering to the principles of ALARA. COMPARISON STUDY: Chest CTA 11/20/2016. FINDINGS: Normal caliber thoracic aorta with no evidence for dissection. The heart is normal in size. No filling defects within the pulmonary arteries to suggest pulmonary embolus. No pleural or pericar dial effusions. Mild mediastinal lymphadenopathy. This may be reactive. The liver and spleen are part ially visualized but appears enlarged. This is similar to the prior study. Hepatic steatosis. The vis ualized adrenal glands unremarkable. No suspicious lytic or blastic osseous lesions. The central airw ays are patent. Multifocal patchy groundglass and consolidative airspace opacities most pronounced wi thin the lung bases. This is consistent with the patient's history of a viral pneumonitis. IMPRESSION: 1. No evidence for pulmonary embolus. 2. Multifocal patchy groundglass and consolidative airspace opacities most pronounced within the lung bases. This is consistent with patient's history of a viral pneumonitis. ACT 112: Negative or not required by law. Electronically signed by: Lazaro Vale M.D. 03/24/2020 9:55 AM
--- NOTE | 2020-03-24 10:06 | XRay Report ---
XR chest 1V portable CLINICAL HISTORY: Shortness of breath. COMPARISON STUDY: Chest radiograph December 13, 2018. FINDINGS: Lung volumes are at the lower limits of normal. There is no pneumothorax or pleural effusio n. No evidence for pulmonary edema. Multifocal bilateral airspace opacities are noted, greater within the right lower lung. Cardiac size is normal. Mediastinal contours are unremarkable. IMPRESSION: Multifocal bilateral lower lung airspace opacities consistent with an infectious process . ACT 112: Negative or not required by law. Electronically signed by: Catracho Farrell M.D. 03/24/2020 10:05 AM
--- NOTE | 2020-03-24 12:17 | Pulmonary Consultation ---
Date of Consultation March 24, 2020 Assessment & Plan (1) COVID-19: It appears that the patient has mild COVID 19 pneumonitis with minimal hypoxia. She is not a candidate for remdesivir and I would actually recommend discontinuing Decadron in light of her hyperglycemia. There is data to support worse outcomes in people who do not require supplemental oxygen and who received steroids for COVID-19 infections. I do not think she would qualify for convalescent plasma at this time. She is on immunomodulator therapy for her multiple sclerosis. This can potentially cause pulmonary toxicity. I would recommend a repeat CT chest in 2 months to follow-up on the abnormalities seen which are most likely related to her COVID-19 infection. I discussed the case with the patient's hospitalist, Dr. Zack Paul. I will not actively follow the patient at this time. I am happy to answer any questions or concerns. Please do not hesitate to call. Thank you for the consult. (2) Hyperglycemia: History of Present Illness Requesting Physician: COVID-19 infection Attending Physician: Zack Paul MD History of Present Illness The history and physical were deferred due to the COVID-19 pandemic. Please reviewed the history and physical by the hospitalist for the interview portion and the physical exam portion. I did do an electronic chart review and discussed the case with the patient's hospitalist and my interpretation of the data is based on the chart review and the discussion with the patient's hospi talist. It appears that the patient is a 54-year-old female with a past medical history of diabetes mellitus, multiple sclerosis on natalizumab infusions once monthly who initially presented to her primary care physician on 03/18/2020 due to ear pain. She was given azithromycin and tested for COVID-19. Her COVID-19 testing came back positive. She apparently felt that she got COVID-19 from her son's roommate who also has COVID-19. She was admitted to the hospital and started on Decadron. Pulmonary is consulted for comment on possible remdesivir therapy. Her lowest oxygen saturation was 93% recorded on 05/24 at 2 AM. It appears that she is currently on room air saturating 95%. Her labs suggest mild leukopenia with a normal lymphocyte count. No significant peripheral eosinophilia noted. D-dimer was mildly elevated to 610. She was started on Decadron and her glucose is currently 363. Ferritin is 406. CRP is elevated 3.11. Procalcitonin was 0.09. She underwent a CTA of her chest yesterday due to shortness of breath. No evidence of pulmonary embolism was noted. Multifocal patchy groundglass and consolidative airspace opacities noted throughout the lung bases. Allergies Allergy/AdvReac Type Severity Reaction Status Date / Time cefuroxime Allergy Severe Hives Verified 03/23/20 23:03 adhesive Allergy Intermediate PAPER Verified 03/23/20 23:03 TAPE-ITCHY RASH aspirin Allergy Intermediate HIVES Verified 03/23/20 23:03 dimethyl fumarate Allergy Intermediate Hives Verified 03/23/20 23:03 [From Tecfidera] fingolimod [From Gilenya] Allergy Intermediate Hives Verified 03/23/20 23:03 Fish Containing Products Allergy Intermediate Hives Verified 03/23/20 23:03 fish derived Allergy Intermediate Hives Verified 03/23/20 23:03 Penicillins Allergy Unknown HAD ANCEF Verified 03/23/20 23:03 BEFORE Home Medications Home Medications Medication Instructions Recorded Confirmed Type natalizumab 300 mg/15 mL 300 mg IV Q28D 28 Days #15 ml 05/23/19 03/23/20 Rx intravenous solution amitriptyline 25 mg tablet 25 mg PO HS #30 tab 03/05/20 03/23/20 Rx azithromycin 250 mg PO DIRECTED 03/23/20 03/23/20 History metformin 1,000 mg PO BID 03/23/20 03/23/20 History Patient History Medical History Diabetes type 2, controlled Migraine MS (multiple sclerosis) UTI (urinary tract infection) Surgical History History of section 1995, 1999 History of hysterectomy 2002 Social History Smoking Status: Never smoker Hx Alcohol Use: No Hx Substance Use: No Preferred Language: Vietnamese Communication Ability: Effective Dry Transfer Worker Required: No Beliefs That Will Affect Care: None marital status: Current Living Situation: Spouse Current Living Situation Comment: lives at home with spouse and son current occupational status: employed current occupation: self-employed Other Information That Helps Us Care for You: No Feels Safe at Home: Yes Safety Concerns: Feels Safe At This Time Assistive Devices: None Review of Systems Review of Systems: Review of systems is deferred due to the COVID-19 pandemic. Please review the hospitalist H&P for full review of systems Physical Exam Physical Exam: The exam is deferred due to the COVID-19 pandemic. Please refer to the hospitalist exam Results & Data Results & Data ([facility]) Vital Signs (Past 12 Hours) Vital Signs Temp Pulse Pulse Resp BP BP Pulse Ox 03/24/20 11:15 97.5 F L 96 H 18 111/71 95 03/24/20 08:33 98.6 F 96 H 17 118/76 93 03/24/20 07:21 95 H 03/24/20 02:45 99.3 F 110 H 20 110/92 95 03/24/20 02:00 112 H 20 143/75 H 92 03/24/20 00:49 99.5 F 03/24/20 00:31 116 H 22 96 I reviewed the vital signs, labs and imaging PG Care Time/CCT Total # of Minutes Spent Total Time Spent with Patient: Total time spent is greater than 50% in coordination of care (as documented) at patient's floor/unit and/or counseling patient: Coding Level of Care Code 91865 Inpt Consult Level 2 Diagnoses COVID-19 U07.1 Hyperglycemia R73.9 Time Spent (min) 28
--- NOTE | 2020-03-24 16:32 | Hospitalist Progress Note ---
Date of Service March 24, 2020 Assessment & Plan (1) COVID-19: Patient diagnosed on 03/18 with Covid-19, worsening symptoms over the last day. Patient with cough, SOB and fever. Presently with adequate oxygenation >94% on room air. - Convalescent plasma ordered - patient provided informed consent - Hold remdesivir therapy - Discussed with pulmonology; will defer given clinical stability. - Hold dexamethasone - Recovery trial indicates harm for patients not requiring O2. She is also already immunocompromised due to her natalizumab, so steroid benefit is even murkier. (2) Diabetes type 2, controlled: Hyperglycemic on arrival. Blood sugars as high as 350 today. - Hold Metformin - Lantus 5u BID - Sliding scale insulin (3) MS (multiple sclerosis): Noted. Patient follows with Héctor Vuong. Receives infusion of natalizumab q monthly, is due next week. - No present neurologic symptoms. - Defer neurology consult at this time. (4) DVT prophylaxis: Lovenox 40 mg SQ BID -> Dosing per [facility] Covid policy Admission and Anticipated Discharge Date Admission Date: March 24, 2020 Subjective Feeling overall well today. No real shortness of breath. No further neurologic symptoms. Reports no fevers/chills, chest pain, shortness of breath, abdominal pain, nausea, or vomiting. Physical Exam Constitutional: WD/WN, vitals as above Eyes: EOM intact bilaterally; no conjunctival abnormality ENMT: external ear and nose normal, oropharynx normal Neck: trachea midline, no thyromegaly normal visual inspection Respiratory: normal respiratory effort, lungs clear to auscultation no respiratory distress Cardiovascular: RRR, no murmur, no edema Gastrointestinal (Abdomen): Inspection/Auscultation: abdomen normal to inspection; abdomen not distended Musculoskeletal: no cyanosis or clubbing, extremities motor strength 5/5 Skin: no rashes, warm and dry Neurologic: moves all extremities and awake Psychiatric: Orientation: alert, oriented to person and cooperative Results & Data Results & Data ([facility]) Vital Signs (Past 12 Hours) Vital Signs Temp Pulse Pulse Resp BP Pulse Ox 03/24/20 16:19 37.0 C 79 18 111/52 L 98 03/24/20 15:52 77 03/24/20 11:15 36.4 C L 96 H 18 111/71 95 03/24/20 08:33 37.0 C 96 H 17 118/76 93 03/24/20 07:21 95 H PG Care Time/CCT Total # of Minutes Spent Total Time Spent with Patient: Total time spent is greater than 50% in coordination of care (as documented) at patient's floor/unit and/or counseling patient: Coding Level of Care Code 11532 Subseq Hosp Care Lvl 2 Diagnoses COVID-19 U07.1 Diabetes type 2, controlled E11.9 Diabetes mellitus long term care administrator insulin use: without senior care use Diabetes mellitus complication status: without complication MS (multiple sclerosis) G35 DVT prophylaxis Z29.9 (1) Diabetes type 2, controlled Diabetes mellitus senior care insulin use: without senior care use Diabetes mellitus complication status: without complication Qualified Code(s): E11.9 - Type 2 diabetes mellitus without complications
[2020-03-24] MEDS ORDERED: AMITRIPTYLINE HCL 25 MG TAB PO SCH (21:00)
[2020-03-24] MEDS: AMITRIPTYLINE HCL 25 MG TAB PO SCH (21:06)
--- NOTE | 2020-03-25 06:02 | Electrocardiogram Report ---
Test Reason : Blood Pressure : / mmHG Vent. Rate : 120 BPM Atrial Rate : 120 BPM P-R Int : 130 ms QRS Dur : 088 ms QT Int : 332 ms P-R-T Axes : 034 062 026 degrees QTc Int : 470 ms Sinus tachycardia Cannot rule out Anterior infarct , age undetermined Nonspecific T wave abnormality Abnormal ECG When compared with ECG of 14-MAY-2018 19:54, No significant change was found Confirmed by Bud Licona ([id number]) on 03/25/2020 6:01:45 AM Referred By: Bruce Wagner Confirmed By:Bud Licona
[2020-03-25 06:27] LABS: Estimated Average Glucose 266 mg/dl; Hemoglobin A1C 10.9 % (4.5-5.6)
[2020-03-25] MEDS ORDERED: guaiFENesin/CODEINE 100MG/10MG 5ML UDC PO PRN (08:26)
[2020-03-25] MEDS: ENOXAPARIN INJ 40 MG/0.4 ML SYR SQ SCH (08:38)
[2020-03-25] MEDS: INSULIN GLARGINE SOLOSTAR 100 UNITS/ML 3 ML PEN SC SCH ×2 (08:39→20:49)
[2020-03-25] MEDS: INSULIN ASPART 100 UNITS/ML 3 ML PEN SC SCH ×4 (08:41→20:49)
[2020-03-25] MEDS: BENZONATATE 100 MG CAPSULE PO PRN ×2 (12:55→20:40)
--- NOTE | 2020-03-25 14:02 | Hospitalist Progress Note ---
Date of Service March 25, 2020 Assessment & Plan (1) Diabetes type 2, controlled: Poorly controlled with A1c of 10.9% this admission. Hyperglycemic on arrival. Blood sugars as high as 350 today. - Hold Metformin - Lantus 10 units BID - Sliding scale insulin -> Tightened twice today already with sugars still in the 300 range. (2) COVID-19: Patient diagnosed on 03/18 with Covid-19, worsening symptoms over the last day. Patient with cough, SOB and fever. Presently with adequate oxygenation >94% on room air. - Convalescent plasma ordered - patient provided informed consent - Hold remdesivir therapy - Discussed with pulmonology; will defer given clinical stability. - Hold dexamethasone - Recovery trial indicates harm for patients not requiring O2. She is also already immunocompromised due to her natalizumab, so steroid benefit is even murkier. (3) MS (multiple sclerosis): Noted. Patient follows with Héctor Vuong. Receives infusion of natalizumab q monthly, is due next week. - No present neurologic symptoms. - Defer neurology consult at this time. (4) DVT prophylaxis: Lovenox 40 mg SQ daily Admission and Anticipated Discharge Date Admission Date: March 24, 2020 Subjective Had some coughing overnight. Otherwise stable. Reports no fevers/chills, chest pain, shortness of breath, abdominal pain, nausea, or vomiting. Physical Exam Constitutional: WD/WN, vitals as above Eyes: EOM intact bilaterally; no conjunctival abnormality ENMT: external ear and nose normal, oropharynx normal Neck: trachea midline, no thyromegaly normal visual inspection Respiratory: normal respiratory effort, lungs clear to auscultation no respiratory distress Cardiovascular: RRR, no murmur, no edema Gastrointestinal (Abdomen): Inspection/Auscultation: abdomen normal to ins pection; abdomen not distended Musculoskeletal: no cyanosis or clubbing, extremities motor strength 5/5 Skin: no rashes, warm and dry Neurologic: moves all extremities and awake Psychiatric: Orientation: alert, oriented to person and cooperative Results & Data Results & Data (MN) Vital Signs (Past 12 Hours) Vital Signs Temp Pulse Resp BP Pulse Ox 03/25/20 11:27 36.5 C 63 18 101/66 96 03/25/20 08:09 36.8 C 60 18 97/61 L 95 03/25/20 02:47 37.4 C 76 16 122/68 97 PG Care Time/CCT Total # of Minutes Spent Total Time Spent with Patient: Total time spent is greater than 50% in coordination of care (as documented) at patient's floor/unit and/or counseling patient: Coding Level of Care Code 43607 Subseq Hosp Care Lvl 2 Diagnoses Diabetes type 2, controlled E11.9 Diabetes mellitus prison insulin use: without prison use Diabetes mellitus complication status: without complication COVID-19 U07.1 MS (multiple sclerosis) G35 DVT prophylaxis Z29.9 (1) Diabetes type 2, controlled Diabetes mellitus prison insulin use: without intermodal customer service use Diabetes mellitus complication status: without complication Qualified Code(s): E11.9 - Type 2 diabetes mellitus without complications
[2020-03-25] MEDS ORDERED: INSULIN GLARGINE SOLOSTAR 100 UNITS/ML 3 ML PEN SC SCH (20:00)
[2020-03-25] MEDS: AMITRIPTYLINE HCL 25 MG TAB PO SCH (20:40)
[2020-03-26] MEDS: ENOXAPARIN INJ 40 MG/0.4 ML SYR SQ SCH (08:20)
[2020-03-26] MEDS: INSULIN ASPART 100 UNITS/ML 3 ML PEN SC SCH (08:23)
[2020-03-26] MEDS: INSULIN GLARGINE SOLOSTAR 100 UNITS/ML 3 ML PEN SC SCH (08:23)
--- NOTE | 2020-03-26 18:25 | Discharge Summary ---
Date of Service March 26, 2020 Admission HPI Per Admitting Provider Yamila Juan is a 54yo C female with history of DM on Metformin, MS on natalizumab infusion q 28 days. Patient was seen by her PCP on 03/18 with complaint of ear pain. She was started on Azithromycin and tested for Covid-19. Patient's Covid test came back positive. She believes she contracted the illness from her son's roommates who have recently tested positive. Patient has been feeling fairly well at home until yesterday 03/23 when she developed persistent fever, cough, SOB. She also had loss of taste and some diarrhea. No CP/palpitations/abdominal pain. ER Course: Albuterol HFA, Dexamethasone, Insulin 10u IV, NSS x 500mL Principal Diagnosis Covid-19 Hyperglyemia Discharge Exam Constitutional WD/WN, vitals as above Eyes EOM intact bilaterally; no conjunctival abnormality ENMT external ear and nose normal, oropharynx normal Neck trachea midline, no thyromegaly normal visual inspection Respiratory normal respiratory effort, lungs clear to auscultation no respiratory distress Cardiovascular RRR, no murmur, no edema Gastrointestinal (Abdomen) Inspection/Auscultation: abdomen normal to inspection; abdomen not distended Musculoskeletal no cyanosis or clubbing, extremities motor strength 5/5 Skin no rashes, warm and dry Neurologic moves all extremities and awake Psychiatric Orientation: alert, oriented to person and cooperative Discharge Data Allergies Allergy/AdvReac Type Severity Reaction Status Date / Time cefuroxime Allergy Severe Hives Verified 03/23/20 23:03 adhesive Allergy Intermediate PAPER Verified 03/23/20 23:03 TAPE-ITCHY RASH aspirin Allergy Intermediate HIVES Verified 03/23/20 23:03 dimethyl fumarate Allergy Intermediate Hives Verified 03/23/20 23:03 [From Tecfidera] fingolimod [From Gilenya] Allergy Intermediate Hives Verified 03/23/20 23:03 Fish Containing Products Allergy Intermediate Hives Verified 03/23/20 23:03 fish derived Allergy Intermediate Hives Verified 03/23/20 23:03 Penicillins Allergy Unknown HAD ANCEF Verified 03/23/20 23:03 BEFORE Consultations 03/24/20 00:35 ED Decision to Admit Stat 03/24/20 02:58 Consult Pulmonology Routine Ordered Studies 03/23/20 21:48 CT angio chest PE protocol Urgent Diabetes Follow up Diabetes Follow-up Needed for HgbA1c >9% Hospital Course (1) Diabetes type 2, controlled: Poorly controlled with A1c of 10.9% this admission. Hyperglycemic on arrival. Blood sugars as high as 350 today. - Hold Metformin - Lantus 10 units BID - Sliding scale insulin -> Tightened twice today already with sugars still in the 300 range. Informed by patient that she actually uses 17 units of Lantus BID which was not on the med rec. Added this in, and her sugars were still not great, but better by the day of discharge. Will need to follow up with her PCP, as with A1c of 11%, she needs tighter insulin titration. (2) COVID-19: Patient diagnosed on 03/18 with Covid-19, worsening symptoms over the last day. Patient with cough, SOB and fever. Presently with adequate oxygenation >94% on room air. - Convalescent plasma ordered - patient provided informed consent - Held remdesivir therapy - Discussed with pulmonology; will defer given clinical stability. - Held dexamethasone - Recovery trial indicates harm for patients not requiring O2. She is also already immunocompromised due to her natalizumab, so steroid benefit is even murkier. (3) MS (multiple sclerosis): Noted. Patient follows with Héctor Vuong. Receives infusion of natalizumab q monthly, is due next week. - No present neurologic symptoms. - Defer neurology consult at this time. (4) DVT prophylaxis: Lovenox 40 mg SQ daily Total Time Total Time Spent Total Time Spent (In Minutes): 35 Discharge Plan Discharge Items Patient Disposition: Home - Self-Care Reason For Visit: COVID-19 PNA Discharge Diagnosis: Covid-19 infection Condition on Discharge: Fair Activity: Resume your previous activity Non-emergency contact: Primary Care Provider Call non-emergency contact if: your symptoms worsen and your temperature is above 101 Follow-up/Referrals: Bruce Wagner DO [Primary Care Provider] - Diet: Regular Addtl Attending Provider Instructions: Ms. Juan, You were admitted with symptoms from a Covid-19 infection. Luckily, you have been stable and done relatively well from an infection standpoint. Your oxygen levels have remained stable throughout your admission. Your main symptoms are cough and feeling weak. We have tried to treat the cough as best we can with medications. The weakness and malaise will hopefully improve with time. Please follow up with your PCP in a week or so. It may be best to do a tele- visit if is ok with that. We will leave it up to you two to decide. Pending Studies at Discharge: No Stand-Alone Forms: [facility], Smoking Cessation Medications and DC Order Prescriptions: New benzonatate [Tessalon Perles] 100 mg capsule 100 mg PO TID PRN (Reason: cough) Qty: 30 RF: 0 Continued Tysabri 300 mg/15 mL solution 300 mg IV Q28D 28 Days Qty: 15 RF: 11 amitriptyline 25 mg tablet 25 mg PO HS Qty: 30 RF: 5 azithromycin 250 mg tablet 250 mg PO DIRECTED RF: 0 metformin 1,000 mg tablet 1,000 mg PO BID RF: 0 Discharge Orders: Discharge Order (Routine); Ordered 03/26/20 Ordered By: Zack Paul Admission Data Admit Date/Time: 03/24/20 01:53 Attending Provider: Zack Paul Admit Provider: Nay Fay Primary Care Provider: Bruce Wagner Other Providers: Zack Paul ; Nay Fay ; Lex Bauman Other Interventions: Discharge Summary Assessment (RN) Last Done: 03/26/20 10:19 Coding Level of Care Code D/C Day Management >30 mins Diagnoses Diabetes type 2, controlled E11.9 Diabetes mellitus watermaster insulin use: without usp use Diabetes mellitus complication status: without complication COVID-19 U07.1 MS (multiple sclerosis) G35 DVT prophylaxis Z29.9
== END 2020-03-26 12:35 | disposition home or self-care (01) | DRG 179 ==
LOC: ED 20:54 → SUATTDRO 03-24 01:53 → 2S 03-24 01:53 → 2N 03-25 15:59